=== PATIENT | male | born 1995 | race Two or more races ===

== ENCOUNTER 2020-06-12 13:54 | Emergency (ER) | payer MEDICAID ==
[~2020-06-12] VITALS: Ht 177.8 cm; Wt 80.0 kg
[2020-06-12 14:06] VITALS: BP 126/86
[2020-06-12] MEDS ORDERED: LIDOCAINE 1%/EPI 1:100,000 10 ML VIAL IJ ONE (14:30)
[2020-06-12] MEDS ORDERED: BACITRACIN ZINC OINT UDPKT TOP ONE (14:30)
[2020-06-12] MEDS ORDERED: ACETAMINOPHEN 325MG TABLET PO ONE (14:30)
== END 2020-06-12 15:25 | disposition home or self-care (01) ==
LOC: ER 13:54
DX: S71.112A Laceration without foreign body, left thigh, initial encounter (principal); W26.8XXA Contact with other sharp object(s), not elsewhere classified, initial encounter; Y93.39 Activity, other involving climbing, rappelling and jumping off; Y92.89 Other specified places as the place of occurrence of the external cause
CPT/HCPCS: 12002; 99282; A4217; J3490; Z7610

== ENCOUNTER 2023-09-14 22:48 | Emergency (ER) | payer MEDICAID, OTHER ==
[~2023-09-14] VITALS: Ht 185.4 cm; Wt 92.0 kg
[2023-09-14 23:01] VITALS: BP 146/94; RESP 19; TEMP 97.6; O2SAT 99
[2023-09-14 23:03] VITALS: PULSE 110
[2023-09-14] MEDS: ACETAMINOPHEN 500MG TABLET PO ONE (23:50)
[2023-09-15] MEDS ORDERED: IBUP-2029 MT (01:33)
== END 2023-09-15 01:46 | disposition home or self-care (01) ==
LOC: ER 22:48
DX: S09.90XA Unspecified injury of head, initial encounter (principal); F15.90 Other stimulant use, unspecified, uncomplicated; V98.8XXA Other specified transport accidents, initial encounter; Y93.89 Activity, other specified; Y92.89 Other specified places as the place of occurrence of the external cause; Y99.8 Other external cause status
CPT/HCPCS: 99284

== ENCOUNTER 2023-12-27 00:16 | Emergency (ER) | payer SELFPAY ==
[~2023-12-27] VITALS: Ht 180.3 cm; Wt 90.0 kg
[~2023-12-27 00:16] MED LIST: IBUP-2029 MT
[2023-12-27 00:31] VITALS: BP 146/96; TEMP 98.7; O2SAT 97
[2023-12-27 00:38] VITALS: PULSE 104; RESP 16
== END 2023-12-27 05:19 | disposition left against medical advice (07) ==
LOC: ER 00:16
DX: T14.8XXA Other injury of unspecified body region, initial encounter (principal); Z53.21 Procedure and treatment not carried out due to patient leaving prior to being seen by health care provider; X58.XXXA Exposure to other specified factors, initial encounter; Y93.89 Activity, other specified; Y92.89 Other specified places as the place of occurrence of the external cause; Y99.8 Other external cause status

== ENCOUNTER 2023-12-27 09:02 | Emergency (ER) | payer SELFPAY ==
[~2023-12-27] VITALS: Ht 180.3 cm; Wt 82.0 kg
[2023-12-27 09:27] VITALS: BP 131/87; PULSE 100; RESP 16; TEMP 98.2; O2SAT 98
== END 2023-12-27 10:40 | disposition left against medical advice (07) ==
LOC: ER 09:02
DX: Z48.02 Encounter for removal of sutures (principal); Z53.21 Procedure and treatment not carried out due to patient leaving prior to being seen by health care provider